=== PATIENT | female | born 1995 | race Caucasian/White ===

== ENCOUNTER 2016-09-06 15:48 | Emergency (ER) | payer OTHER ==
[2016-09-06] MEDS ORDERED: DEXAMETHASONE SOD PHOS 10 MG/1 ML VIAL ONE (17:30)
== END 2016-09-06 17:40 | disposition home or self-care (01) ==
LOC: ED 15:48
DX: J02.0 Streptococcal pharyngitis (principal); F17.210 Nicotine dependence, cigarettes, uncomplicated
CPT/HCPCS: 87880; 99283 ×2; J1100